=== PATIENT | female | born 1930 | race Caucasian/White ===

== ENCOUNTER 2021-05-18 09:17 | Inpatient (IN) ==
[2021-05-18] MEDS ORDERED: Senna TAB 8.6 mg TAB PO PRN (10:49)
[2021-05-18] MEDS ORDERED: Magnesium Hydroxide LIQ 30 ML UDC PO PRN (10:49)
[2021-05-18] MEDS: Enoxaparin 30 MG/0.3 ML SYR SUBCUT SCH (11:48)
[2021-05-19] MEDS ORDERED: Flu vaccine *QUAD* 2021-22* 0.5 ML SYRINGE IM ONE (09:00)
[2021-05-19] MEDS: HYDROcodone/ACETAMIN 5/325 mg TAB PO PRN (13:20)
[2021-05-19] MEDS: Enoxaparin 30 MG/0.3 ML SYR SUBCUT SCH (13:23)
[2021-05-20 06:58] LABS: ABS Basophils 0.1 10^3/ul (0-0.2); ABS Eosinophils 0.3 10^3/ul (0-0.6); ABS Lymphocytes 1.4 10^3/ul (1.0-4.8); ABS Neutrophils 6.1 10^3/ul (1.5-7.7); Eosinophil % 3.2 %; Hematocrit 33 % (35-47); Hemoglobin 10.8 g/dL (12.0-16.0); Lymphocyte % 16.1 %; Mean Corpuscular HGB Conc 33 g/dL (31-36); Mean Corpuscular Hemoglobin 29 pg (27-31); Mean Corpuscular Volume 86 fL (80-97); Platelet Count 304 10^3/uL (150-450); Red Blood Count 3.79 10^6 /uL (3.70-4.87); Red Cell Distribution Width 14 % (10-15); White Blood Count 8.9 10^3/uL (3.5-10.8)
[2021-05-20 07:20] LABS: Albumin 2.8 g/dL (3.2-5.2); Calcium 8.1 mg/dL (8.6-10.3); EGFR African American 82.9 (>60); EGFR Non-African American 68.5 (>60); Globulin 2.7 g/dL (2-4); Potassium 3.9 mmol/L (3.5-5.0); Total Protein 5.5 g/dL (6.4-8.9)
[2021-05-20] MEDS: HYDROcodone/ACETAMIN 5/325 mg TAB PO PRN ×2 (08:12→21:11)
[2021-05-20] MEDS: Enoxaparin 30 MG/0.3 ML SYR SUBCUT SCH (12:51)
[2021-05-21] MEDS: Enoxaparin 30 MG/0.3 ML SYR SUBCUT SCH (12:23)
[2021-05-22] MEDS: Enoxaparin 30 MG/0.3 ML SYR SUBCUT SCH (12:21)
[2021-05-23] MEDS: Enoxaparin 30 MG/0.3 ML SYR SUBCUT SCH (08:11)
[2021-05-23] MEDS: HYDROcodone/ACETAMIN 5/325 mg TAB PO PRN (20:11)
[2021-05-24] MEDS: HYDROcodone/ACETAMIN 5/325 mg TAB PO PRN (09:14)
[2021-05-24] MEDS: Enoxaparin 30 MG/0.3 ML SYR SUBCUT SCH (09:15)
[2021-05-25] MEDS: HYDROcodone/ACETAMIN 5/325 mg TAB PO PRN (08:05)
[2021-05-25] MEDS: Enoxaparin 30 MG/0.3 ML SYR SUBCUT SCH (11:21)
[2021-05-26] MEDS: HYDROcodone/ACETAMIN 5/325 mg TAB PO PRN ×2 (07:41→16:31)
[2021-05-26] MEDS: Enoxaparin 30 MG/0.3 ML SYR SUBCUT SCH (10:35)
[2021-05-27 06:37] VITALS: BP 143/67
[2021-05-27 06:55] LABS: ABS Basophils 0.1 10^3/ul (0-0.2); ABS Eosinophils 0.1 10^3/ul (0-0.6); ABS Lymphocytes 1.6 10^3/ul (1.0-4.8); ABS Monocytes 0.7 10^3/ul (0-0.8); ABS Neutrophils 4.3 10^3/ul (1.5-7.7); Eosinophil % 2.1 %; Hematocrit 34 % (35-47); Hemoglobin 11.3 g/dL (12.0-16.0); Lymphocyte % 23.3 %; Mean Corpuscular HGB Conc 34 g/dL (31-36); Mean Corpuscular Hemoglobin 29 pg (27-31); Mean Corpuscular Volume 86 fL (80-97); Mean Platelet Volume 7.5 fL (7.4-10.4); Platelet Count 387 10^3/uL (150-450); Red Blood Count 3.93 10^6 /uL (3.70-4.87); Red Cell Distribution Width 15 % (10-15); White Blood Count 6.8 10^3/uL (3.5-10.8)
[2021-05-27 07:25] LABS: Albumin 3.2 g/dL (3.2-5.2); Albumin/Globulin Ratio 1.1 (1-3); Calcium 8.8 mg/dL (8.6-10.3); EGFR African American 92.3 (>60); EGFR Non-African American 76.3 (>60); Potassium 3.9 mmol/L (3.5-5.0); Total Protein 6.2 g/dL (6.4-8.9)
[2021-05-27] MEDS: Enoxaparin 30 MG/0.3 ML SYR SUBCUT SCH (08:17)
== END 2021-05-27 11:40 | disposition home or self-care (01) | DRG 560 ==
LOC: PMRU 10:31
PROVIDERS: ADMIT Physical Medicine & Rehabilitation; ATTEND Physical Medicine & Rehabilitation

== ENCOUNTER 2021-05-28 01:53 | Inpatient (IN) ==
[2021-05-28] MEDS ORDERED: Morphine 4 MG/ML VIAL (1 ml) IV ONE (03:00)
[2021-05-28] MEDS: Lactated Ringers 1000 ml BAG 1,000 ML IV SCH ×3 (03:10→22:22)
[2021-05-28 04:25] LABS: Rapid COVID-19 Molecular Undetected (Undetected)
[2021-05-28 05:09] LABS: ABS Basophils 0.1 10^3/ul (0-0.2); ABS Lymphocytes 0.6 10^3/ul (1.0-4.8); ABS Monocytes 0.9 10^3/ul (0-0.8); ABS Neutrophils 11.3 10^3/ul (1.5-7.7); Eosinophil % 0.2 %; Hematocrit 35 % (35-47); Hemoglobin 11.4 g/dL (12.0-16.0); Lymphocyte % 4.8 %; Mean Corpuscular HGB Conc 33 g/dL (31-36); Mean Corpuscular Hemoglobin 29 pg (27-31); Mean Corpuscular Volume 87 fL (80-97); Mean Platelet Volume 7.8 fL (7.4-10.4); Nucleated Red Blood Cells % 0.1; Platelet Count 417 10^3/uL (150-450); Red Blood Count 3.98 10^6 /uL (3.70-4.87); Red Cell Distribution Width 15 % (10-15); White Blood Count 12.8 10^3/uL (3.5-10.8)
[2021-05-28 05:16] LABS: INR 1.09 (0.86-1.15)
[2021-05-28 05:27] LABS: Albumin 3.3 g/dL (3.2-5.2); Albumin/Globulin Ratio 1.1 (1-3); Calcium 8.8 mg/dL (8.6-10.3); EGFR African American 95.3 (>60); EGFR Non-African American 78.8 (>60); Globulin 2.9 g/dL (2-4); Potassium 4.1 mmol/L (3.5-5.0); Total Bilirubin 1.2 mg/dL (0.2-1.0); Total Protein 6.2 g/dL (6.4-8.9)
[2021-05-28] MEDS: Metoprolol Tartrate 5 mg VIAL 5 ml VIAL (1 mg/ml) IV SCH ×3 (11:12→23:25)
[2021-05-28 13:09] LABS: Urine Appearance Clear; Urine Bilirubin Negative (Negative); Urine Blood 1+ (Negative); Urine Color Yellow; Urine Glucose Negative (Negative); Urine Ketones Negative (Negative); Urine Nitrite Negative (Negative); Urine Protein Negative (Negative); Urine Specific Gravity 1.011 (1.002-1.030); Urine Urobilinogen Negative (Negative)
[2021-05-28 13:12] LABS: Urine Bacteria 1+ (Absent); Urine Red Blood Cell 2+(6-10/hpf) (Absent); Urine White Blood Cell Trace(0-5/hpf) (Absent)
[2021-05-28] MEDS: Heparin 5000 UNITS/ML 1 mL VIAL SUBCUT SCH (21:02)
[2021-05-29] MEDS: Metoprolol Tartrate 5 mg VIAL 5 ml VIAL (1 mg/ml) IV SCH ×4 (05:36→22:30)
[2021-05-29] MEDS: Lactated Ringers 1000 ml BAG 1,000 ML IV SCH ×3 (05:36→22:21)
[2021-05-29] MEDS: Heparin 5000 UNITS/ML 1 mL VIAL SUBCUT SCH ×2 (05:42→15:39)
[2021-05-29] MEDS ORDERED: Famotidine IV 10 MG/ML 2 ml VIAL (20 mg) IV SLOW PU ONE (06:00)
[2021-05-29 06:56] LABS: Albumin 3.1 g/dL (3.2-5.2); Albumin/Globulin Ratio 1.1 (1-3); Calcium 8.6 mg/dL (8.6-10.3); EGFR African American 103.8 (>60); EGFR Non-African American 85.8 (>60); Globulin 2.7 g/dL (2-4); Potassium 3.9 mmol/L (3.5-5.0); Total Bilirubin 1.1 mg/dL (0.2-1.0); Total Protein 5.8 g/dL (6.4-8.9)
[2021-05-29] MEDS ORDERED: Rocuronium 50 mg VIAL 10 mg/ml 5 ml VIAL (50 mg) ONE ×3 (07:22→09:53)
[2021-05-29] MEDS ORDERED: Propofol 10 MG/ML 20 ML BTL ONE (07:22)
[2021-05-29] MEDS ORDERED: Lidocaine 2% PF 5 ML VIAL ONE (07:22)
[2021-05-29] MEDS ORDERED: fentaNYL 100 mcg/2 ml 50 MCG/ML VIAL ONE ×2 (07:22→09:08)
[2021-05-29] MEDS ORDERED: HYDROcodone/ACETAMIN 5/325 mg TAB PO PRN (07:41)
[2021-05-29] MEDS ORDERED: DiMENhydriNATE IV 50 mg/ml 1 ml VIAL IV PUSH PRN (07:41)
[2021-05-29] MEDS ORDERED: Naloxone 0.4 mg VIAL 0.4 mg/ml 1 ml VIAL IV PRN (07:41)
[2021-05-29] MEDS ORDERED: Morphine 4 MG/ML VIAL (1 ml) IV PRN (07:41)
[2021-05-29] MEDS ORDERED: fentaNYL 100 mcg/2 ml 50 MCG/ML VIAL IV PRN (07:41)
[2021-05-29] MEDS ORDERED: oxyCODONE/Acetamin 5/325 mg TAB PO PRN (07:41)
[2021-05-29] MEDS ORDERED: ceFAZolin 2 GM in NS PREMIX 2 GM/100 ML BAG IVPB ONE (08:22)
[2021-05-29] MEDS ORDERED: EPHEDrine (Pressors) 50 MG/ML VIAL ONE (08:53)
[2021-05-29] MEDS ORDERED: ROPIVACAINE 5 MG/ML 30 ML BTL (0.5%) ONE (10:05)
[2021-05-29] MEDS ORDERED: Ondansetron 4 mg VIAL 2 MG/ML 2 ml VIAL ONE (11:28)
[2021-05-29] MEDS ORDERED: Metoprolol Tartrate 5 mg VIAL 5 ml VIAL (1 mg/ml) ONE ×3 (12:08→14:15)
[2021-05-29] MEDS: ceFAZolin 1 GM X 3 DOSES POST-OP Q8H (AddVan) IVPB SCH (17:18)
[2021-05-30] MEDS: ceFAZolin 1 GM X 3 DOSES POST-OP Q8H (AddVan) IVPB SCH ×2 (01:46→09:48)
[2021-05-30] MEDS: Metoprolol Tartrate 5 mg VIAL 5 ml VIAL (1 mg/ml) IV SCH ×3 (04:29→12:43)
[2021-05-30] MEDS: Lactated Ringers 1000 ml BAG 1,000 ML IV SCH ×2 (05:30→12:43)
[2021-05-30] MEDS: Enoxaparin 30 MG/0.3 ML SYR SUBCUT SCH (09:52)
[2021-05-30] MEDS ORDERED: Digoxin IV 0.5 MG/2 ML AMP (0.25 MG/ML) IV SLOW PU ONE (13:49)
[2021-05-30] MEDS ORDERED: Furosemide 20 mg/2 ml IV VIAL IV ONE (14:34)
[2021-05-30] MEDS: Digoxin IV 0.5 MG/2 ML AMP (0.25 MG/ML) IV SLOW PU SCH (20:53)
[2021-05-31] MEDS: Digoxin IV 0.5 MG/2 ML AMP (0.25 MG/ML) IV SLOW PU SCH (02:02)
[2021-05-31] MEDS ORDERED: Senna TAB 8.6 mg TAB PO PRN (08:02)
[2021-05-31] MEDS ORDERED: Polyethylene Glycol 3350 17 GM PACKET PO PRN (08:02)
[2021-05-31] MEDS: Enoxaparin 30 MG/0.3 ML SYR SUBCUT SCH (09:54)
[2021-06-01 07:41] LABS: ABS Eosinophils 0.2 10^3/ul (0-0.6); ABS Lymphocytes 0.9 10^3/ul (1.0-4.8); ABS Monocytes 1.2 10^3/ul (0-0.8); ABS Neutrophils 8.5 10^3/ul (1.5-7.7); Eosinophil % 1.9 %; Hematocrit 24 % (35-47); Lymphocyte % 8.7 %; Mean Corpuscular HGB Conc 33 g/dL (31-36); Mean Corpuscular Hemoglobin 29 pg (27-31); Mean Corpuscular Volume 86 fL (80-97); Mean Platelet Volume 7.7 fL (7.4-10.4); Platelet Count 347 10^3/uL (150-450); Red Blood Count 2.79 10^6 /uL (3.70-4.87); Red Cell Distribution Width 14 % (10-15); White Blood Count 10.8 10^3/uL (3.5-10.8)
[2021-06-01 07:52] LABS: Albumin 2.4 g/dL (3.2-5.2); EGFR African American 123.3 (>60); EGFR Non-African American 101.9 (>60); Globulin 2.5 g/dL (2-4); Potassium 3.8 mmol/L (3.5-5.0); Total Bilirubin 0.9 mg/dL (0.2-1.0); Total Protein 4.9 g/dL (6.4-8.9)
[2021-06-01] MEDS: Enoxaparin 30 MG/0.3 ML SYR SUBCUT SCH (10:42)
[2021-06-01 16:30] LABS: Hematocrit 26 % (35-47); Hemoglobin 8.4 g/dL (12.0-16.0)
[2021-06-01] MEDS ORDERED: Digoxin IV 0.5 MG/2 ML AMP (0.25 MG/ML) IV SLOW PU ONE (17:00)
[2021-06-02 06:58] LABS: ABS Basophils 0.1 10^3/ul (0-0.2); ABS Eosinophils 0.2 10^3/ul (0-0.6); ABS Lymphocytes 1.3 10^3/ul (1.0-4.8); ABS Neutrophils 5.7 10^3/ul (1.5-7.7); Eosinophil % 2.8 %; Hematocrit 24 % (35-47); Lymphocyte % 15.5 %; Mean Corpuscular HGB Conc 34 g/dL (31-36); Mean Corpuscular Hemoglobin 29 pg (27-31); Mean Corpuscular Volume 86 fL (80-97); Mean Platelet Volume 7.7 fL (7.4-10.4); Platelet Count 381 10^3/uL (150-450); Red Blood Count 2.76 10^6 /uL (3.70-4.87); Red Cell Distribution Width 14 % (10-15); White Blood Count 8.3 10^3/uL (3.5-10.8)
[2021-06-02] MEDS: Enoxaparin 30 MG/0.3 ML SYR SUBCUT SCH (09:42)
[2021-06-03 06:34] LABS: Calcium 8.2 mg/dL (8.6-10.3); EGFR African American 116.1 (>60); Potassium 3.6 mmol/L (3.5-5.0)
[2021-06-03 07:03] LABS: Hematocrit 26 % (35-47); Hemoglobin 8.3 g/dL (12.0-16.0); Mean Corpuscular HGB Conc 32 g/dL (31-36); Mean Corpuscular Hemoglobin 28 pg (27-31); Mean Corpuscular Volume 87 fL (80-97); Red Blood Count 2.96 10^6 /uL (3.70-4.87); Red Cell Distribution Width 14 % (10-15)
[2021-06-03 07:43] LABS: ABS Basophils 0.1 10^3/ul (0-0.2); ABS Eosinophils 0.4 10^3/ul (0-0.6); ABS Monocytes 1.4 10^3/ul (0-0.8); Eosinophil % 3.3 %; Lymphocyte % 15.4 %; Mean Platelet Volume 8.7 fL (7.4-10.4); Platelet Count 431 10^3/uL (150-450); White Blood Count 12.9 10^3/uL (3.5-10.8)
[2021-06-03] MEDS: Enoxaparin 30 MG/0.3 ML SYR SUBCUT SCH (09:50)
[2021-06-03] MEDS ORDERED: Potassium Chlor 20 meq TAB.ER PO ONE (16:11)
[2021-06-04 09:40] LABS: ABS Basophils 0.1 10^3/ul (0-0.2); ABS Eosinophils 0.3 10^3/ul (0-0.6); ABS Lymphocytes 1.1 10^3/ul (1.0-4.8); ABS Monocytes 0.7 10^3/ul (0-0.8); ABS Neutrophils 5.5 10^3/ul (1.5-7.7); Eosinophil % 3.3 %; Hematocrit 26 % (35-47); Hemoglobin 8.3 g/dL (12.0-16.0); Lymphocyte % 14.7 %; Mean Corpuscular HGB Conc 32 g/dL (31-36); Mean Corpuscular Hemoglobin 28 pg (27-31); Mean Corpuscular Volume 85 fL (80-97); Mean Platelet Volume 6.9 fL (7.4-10.4); Platelet Count 405 10^3/uL (150-450); Red Cell Distribution Width 15 % (10-15); White Blood Count 7.6 10^3/uL (3.5-10.8)
[2021-06-04 10:01] LABS: Calcium 8.3 mg/dL (8.6-10.3); EGFR African American 120.8 (>60); EGFR Non-African American 99.9 (>60); Potassium 3.9 mmol/L (3.5-5.0)
[2021-06-04] MEDS: Enoxaparin 30 MG/0.3 ML SYR SUBCUT SCH (10:54)
[2021-06-05] MEDS: Enoxaparin 30 MG/0.3 ML SYR SUBCUT SCH (09:11)
[2021-06-06] MEDS: Enoxaparin 30 MG/0.3 ML SYR SUBCUT SCH (09:05)
[2021-06-07] MEDS: Enoxaparin 30 MG/0.3 ML SYR SUBCUT SCH (07:36)
[2021-06-07 09:54] LABS: Rapid COVID-19 Molecular Undetected (Undetected)
[2021-06-07 11:35] VITALS: BP 134/60
== END 2021-06-07 12:59 | DRG 467 ==
LOC: ED 01:53 → SSU 02:21 → SUATTDRO 03:50 → EDHOLD 03:50 → SSU 13:15 → UNDODISIN 05-29 13:52 → SSU 05-29 14:05 → MEDTELE 06-01 18:37
PROVIDERS: ADMIT Internal Medicine; ATTEND Internal Medicine